=== PATIENT | female | born 1940 | race Caucasian/White ===

== ENCOUNTER 2025-09-07 10:15 | Observation (INO) | payer MEDICARE, SELFPAY ==
[2025-09-07] VITALS (13 sets, daily range): BP systolic 107–186; BP diastolic 45–82; PULSE 61–93; RESP 14–20; TEMP 36.4–36.7; O2SAT 93–98; BMI 25.7; BMI 24.6
--- NOTE | 2025-09-07 10:38 | EKG12_ITS ---
Test Reason : GENERAL Blood Pressure : */* mmHG Vent. Rate : 65 BPM Atrial Rate : 65 BPM P-R Int : 236 ms QRS Dur : 90 ms QT Int : 418 ms P-R-T Axes : -15 -16 24 degrees QTcB Int : 434 ms Atrial-paced rhythm with prolonged AV conduction Moderate voltage criteria for LVH, may be normal variant ( R in aVL , Víctor product ) Abnormal ECG Confirmed by ELOISE JARAMILLO, DESMOND ([id number]), script editor ANGELA KITCHEN ([id number]) on 09/10/2025 1:18:54 PM Referred By: JET Confirmed By: DESMOND NAVAS MD
--- NOTE | 2025-09-07 10:38 | CT_ITS ---
PROCEDURE: STROKE BRAIN/HEAD WITHOUT CONT 09/07/2025 REASON FOR EXAM: NEURO DEFICIT, ACUTE, STROKE SUSPECTED TECHNIQUE: Procedure Code: CTBR.ST Modality: CT Procedure: STROKE BRAIN/HEAD WITHOUT CONT Coronal and Sagittal reconstruction series were provided. One or more dose reduction techniques were used (e.g., Automated exposure control, adjustment of the mA and/or kV according to patient size, use of iterative reconstruction technique. RADIATION DOSE SUMMARY: CTDlvol: 44.9 mGy DLP: 829.85 mGycm COMPARISON: None. FINDINGS: Brain: No acute territorial infarction. No acute intracranial hemorrhage. No mass-effect or midline shift. Diffuse white matter hypodensities which are nonspecific but likely due to chronic small-vessel ischemia. Parenchymal volume loss consistent with brain atrophy. No ventriculomegaly. The orbits are unremarkable. The craniocervical junction is unremarkable. CSF Spaces: Advanced generalized cerebral atrophy Sinuses/Mastoids: Clear. Bones: No acute bony abnormalities. CT/STROKE Brain/Head without Cont IMPRESSION: No acute intracranial abnormalities. Stroke Alert: No acute intracranial abnormalities. The critical findings in the findings and impression above were relayed directl y by me by telephone to Manoj Yoo on 09/07/2025 at 10:59 am with readback verification. Reading Location: [facility]
--- NOTE | 2025-09-07 10:40 | EX.ED.DYSGE1 ---
HPI History of Present Illness Chief Complaint: Dizziness Narrative Narrative: Patient is a 85-year-old female with past medical history of hypertension, pacemaker who presented to the emergency department with chief complaint of dizziness. Patient states that this morning when she woke up she states that she felt dizzy states that when she is going to the bathroom she felt dizzy as well as felt very weak and also was sweating. When inquired about dizziness she cannot exactly pinpoint this she states that she felt very off balance but did not describing things spinning. Per family ember at bedside they tried to get up out of a chair this morning and notes that she fell backwards into her chair as she is very off balance and notes that she had to have significant help walking to the car as she was appearing to fall to the right as she is being supported on the left side. Patient did note that about a week ago she had a fall where she struck her head on concrete outside she denies any blood thinning medications. She states that she thought this was from a concussion however notes that she had been doing well until this morning. [facility] Medical History (Updated 09/07/25 @ 12:[address] Manoj Yoo DO) Pacemaker A-fib HTN (hypertension) Allergy/AdvReac Type Severity Reaction Status Date / Time No Known Allergies Allergy Verified 09/07/25 10:16 Social History Smoking Status: Unknown if ever smoked ROS ROS ED ROS Narrative Constitutional: Complains of dizziness as noted above denies headache Eyes: Denies double vision Cardiovascular: Denies chest pain Respiratory: Denies shortness of breath Abdomen: Complains of nausea and vomiting denies abdominal pain diarrhea : Denies urinary symptoms Neurological: Denies any numbness, weakness, tingling Musculoskeletal: Denies back pain Skin: Denies any rashes or lesions EXAM Physical Exam Narrative Exam Narrative: General: Patient is lying in bed resting comfortably did not appear to be in acute distress Head: Atraumatic, normocephalic Eyes: PERRL bilaterally, EOMI bilaterally, no conjunctival injection noted, no vertical or horizontal nystagmus noted on exam Neck: Soft, supple, trachea midline Cardiovascular: Regular rate and rhythm Respiratory: Clear to auscultation bilaterally Abdomen: Soft, nondistended, no tenderness to palpation Extremities: +5/5 strength noted in the bilateral upper and lower extremities, radial pulses +2/4 in the bilateral upper extremities Neurological: Patient following commands that she was at [facility] year is 2024 NIH of 0 GCS 15 patient completed finger-nose testing bilaterally for any difficulty Skin: Warm, dry, patient has ecchymosis over the right forehead Const Vital Signs: 09/07/25 10:15 09/07/25 10:36 09/07/25 11:00 Temperature 98 F Temperature Source Temporal Pulse Rate 61 66 Respiratory Rate 14 19 H Respiratory Effort Normal Blood Pressure 186/81 H 107/73 Blood Pressure Mean 116 84 Pulse Ox 98 96 Oxygen Delivery Method Room Air Room Air 09/07/25 11:30 Temperature Temperature Source Pulse Rate 63 Respiratory Rate 14 Respiratory Effort Blood Pressure 107/73 Blood Pressure Mean 84 Pulse Ox 97 Oxygen Delivery Method MDM MDM MDM Narrative Medical decision making narrative: Patient is a 85-year-old female who presented to the emergency department chief complaint of dizziness, ataxia nausea. On the differential diagnosis includes but limited to intracranial hemorrhage, ischemic stroke, posterior circulation stroke, electrolyte abnormalities, hypoglycemia. Once the workup is obtained and reviewed she will be reevaluated. Patient will given IV fluids as well as Zofran. Patient states that she woke up at 5:30 AM felt her normal self may have been a little bit nauseous and then 7 AM is when her symptoms started. Patient CBC reviewed and showed a white blood count 11.3, hemoglobin 13.3, plate count was noted to 77. Patient INR normal at 1, PT of 14. Patient sodium normal 142, Tessman 4.1, creatinine 0.81. Patient troponin was noted be 22 glucose noted to be 112. Patient chest x-ray reviewed by me some by radiology showed no acute cardiopulmonary processes. Patient CT brain without contrast showed no acute intracranial abnormalities. Patient CTA head and neck reviewed and showed no significant stenosis in the head or neck. Patient's EKG reviewed showed atrial paced rhythm with rate of 65 bpm AR interval at 236. I called the patient's device rep for her pacemaker as she is concerned that this might not be MRI compatible and after discussion with them they state that indeed this is MRI compatible. Teleneurology Dr. Murrieta is recommending admission for further workup. Patient given 325 mg aspirin. Patient case will be discussed with hospitalist. Discussed case with hospitalist Dr.Tereletsky who accept patient for admission. Patient notified is agreeable to plan all question concerns answered. Lab Data Labs: Laboratory Results - last 24 hr 09/07/25 09/07/25 10:30 10:52 WBC 11.3 H RBC 4.12 L Hgb 13.3 Hct 40.9 MCV 99.3 H MCH 32.3 H MCHC 32.5 RDW Std Deviation 47.0 H RDW Coeff of Neymar 12.8 Plt Count 277 MPV 11.0 Immature Gran % (Auto) 0.400 Neut % (Auto) 83.9 H Lymph % (Auto) 9.6 L [place] % (Auto) 5.1 Eos % (Auto) 0.6 Baso % (Auto) 0.4 Absolute Neuts (auto) 9.5 H Absolute Lymphs (auto) 1.09 Nucleated RBC % 0 PT 14.0 INR 1.1 APTT 26.4 Sodium 142 Potassium 4.1 Chloride 105 Carbon Dioxide 28.1 Anion Gap 8 BUN 15 Creatinine 0.81 Estim Creat Clear Calc 48.11 L Est GFR (MDRD) Non-Af 72 BUN/Creatinine Ratio 18.9 Glucose 112 H Calcium 9.8 Troponin T High Sens 22 H POC Glucose 108 H Radiography Diagnostic Testing: Clinical Impression(s) from Imaging Studies Brain CT 09/07/25 10:38 IMPRESSION: No acute intracranial abnormalities. Stroke Alert: No acute intracranial abnormalities. The critical findings in the findings and impression above were relayed directly by me by telephone to Manoj Yoo on 09/07/2025 at 10:59 am with readback verification. Reading Location: [id number] Head/Neck CTA 09/07/25 10:45 IMPRESSION: No hemodynamically significant stenosis in the head and neck. Reading Location: [id number] Chest X-Ray 09/07/25 11:00 IMPRESSION: As above. Reading Location: [id number] Discharge Plan Dx/Rx/DC Orders Clinical Impression: Dizziness, History of pacemaker, Hypertension, Nausea & vomiting Disposition Disposition: [facility]
--- NOTE | 2025-09-07 10:45 | CT_ITS ---
PROCEDURE: STROKE CTA HEAD AND NECK W/CON 09/07/2025 REASON FOR EXAM: NEURO DEFICIT, ACUTE, STROKE SUSPECTED TECHNIQUE: Procedure Code: CTCTA.ST.HN Modality: CT Procedure: STROKE CTA HEAD AND NECK W/CON Multiplanar Sagittal and Coronal images were obtained. CONTRAST: Isovue 370 VOLUME: 100 mL One or more dose reduction techniques were used (e.g., Automated exposure control, adjustment of the mA and/or kV according to patient size, use of iterative reconstruction technique). RADIATION DOSE SUMMARY: CTDlvol: 15.19 mGy DLP: 563.19 mGycm COMPARISON: None. FINDINGS: Aortic Arch: Normal size and branching pattern. No significant atherosclerotic plaque. Brachiocephalic and Subclavians: Unremarkable RIGHT Carotid: Right CCA: Unremarkable. Right ICA: Unremarkable. Right ECA: Unremarkable. LEFT Carotid: Left CCA: Unremarkable. Left ICA: Unremarkable. Left ECA: Unremarkable. Vertebrals: Codominant. Arise from the subclavians. Both vertebrals form the basilar. RIGHT Vertebral: Unremarkable. LEFT Vertebral: Unremarkable. Anatomy: [place] anatomy is normal. Aneurysm or avm: No intracranial aneurysms or large vascular malformations are identified. Anterior cerebral arteries: Unremarkable: Middle cerebral arteries: Unremarkable. Basilar artery: Unremarkable. Posterior cerebral arteries: Unremarkable. Other major branches of the posterior circulation: Unremarkable. Major venous structures: Unremarkable. Other findings: Neck: No lymphadenopathy. Lungs: Lung apices are clear. Bones: Bones are unremarkable. CT/STROKE CTA Head AND Neck W/Con IMPRESSION: No hemodynamically significant stenosis in the head and neck. Reading Location: [facility]
[2025-09-07 10:53] LABS: Hematocrit 40.9 % (37-47); Hemoglobin 13.3 g/dL (12.0-15.0); Immature Granulocytes Count 0.040 X10^3/uL (0.0-0.0); Mean Corp Hgb Conc 32.5 g/dL (32-36); Mean Corpuscular Volume 99.3 fL (81-99); Mean Platelet Vol. 11.0 fl (6.2-12.0); NRBC Flagged by Analyzer 0 % (0-5); Platelet Count 277 K/mm3 (150-450); RBC Distribution Width CV 12.8 % (11.6-14.6); RBC Distribution Width SD 47.0 fl (35.1-43.9); Red Blood Count 4.12 M/mm3 (4.2-5.4); White Blood Count 11.3 K/mm3 (4.4-11.0)
--- NOTE | 2025-09-07 11:00 | RAD_ITS ---
PROCEDURE: CHEST 1 VIEW 09/07/2025 REASON FOR EXAM: NEURO DEFICIT, ACUTE, STROKE SUSPECTED TECHNIQUE: Frontal view of the chest. FINDINGS: No airspace consolidation or pleural effusion. Cardiomegaly with a left-sided cardiac pacemaker. No acute fracture. RAD/Chest 1 View IMPRESSION: As above. Reading Location: [id number]
[2025-09-07 11:04] LABS: Prothrombin Time (Protime)PT. 14.0 SECONDS (11.7-14.9)
[2025-09-07 11:05] LABS: Partial Thromboplast Time 26.4 Seconds (24.1-36.2)
[2025-09-07] MEDS: 0.9% Normal Saline (1000mL) 1,000 ML 999 ML IV (11:08)
[2025-09-07 11:13] LABS: Anion Gap 8 (5-15); BUN 15 mg/dL (4-19); BUN/Creat Ratio 18.9 RATIO (10-20); Calcium,Total 9.8 mg/dL (7.6-11.0); Carbon Dioxide 28.1 mmol/L (21.0-32.0); Chloride 105 mmol/L (98-108); Estimated Creatinine Clearance 48.11 ml/min (50-250); Glucose 112 mg/dL (70-99); Potassium 4.1 mmol/L (3.3-5.1); Troponin T High Sensitivity 22 ng/L (<=14)
--- NOTE | 2025-09-07 13:06 | MRI_ITS ---
PROCEDURE: BRAIN WITHOUT CONTRAST 09/07/2025 REASON FOR EXAM: ATAXIA TECHNIQUE: Procedure Code: MRIBR Modality: MR Procedure: BRAIN WITHOUT CONTRAST Multiplanar and multisequence images were obtained. COMPARISON: CT head dated earlier on the same day. FINDINGS: Extensive confluence and focal FLAIR hyperintensities are noted throughout the bilateral cerebral white matter, nonspecific but likely representing chronic microvascular ischemic changes. Moderate generalized atrophy with commensurate ventriculomegaly. Otherwise the brain parenchyma appears unremarkable. The wells-white matter differentiation is appropriate. No midline shift. The midline structures are intact, specifically the corpus callosum, septum pellucidum, pituitary gland, and cerebellar vermis. The cervicomedullary junction appears unremarkable. The paranasal sinuses and mastoid air cells are clear. Evidence of right cataract surgery. Diffusion-weighted images demonstrate no restricted diffusion. MRI/Brain without Contrast IMPRESSION: Extensive nonspecific FLAIR hyperintensities throughout the bilateral cerebral white matter, likely representing chronic microvascular ischemic changes. Moderate generalized atrophy. Reading Location: [id number]
--- NOTE | 2025-09-07 13:06 | ECHOD_ITS ---
Reason For Study Reason For Study: TIA/CVA Procedure This was a 2D Doppler, Color Flow transthoracic echocardiogram. Exam performed portable in patient room. Left Ventricle Moderate concentric left ventricular hypertrophy. Left ventricular systolic function is normal. No regional wall motion abnormalities noted. Right Ventricle Normal RV size. Normal systolic function. Atria The left atrium is moderately enlarged. Normal right atrium. Mitral Valve Bileaflet diffuse mitral valve thickening. Mild (1+) mitral valve insufficiency. Tricuspid Valve Normal tricuspid valve. Moderate (2+) tricuspid valve insufficiency. Right ventricular systolic pressure estimated to be 42 mmHg. Aortic Valve Mild diffuse aortic valve thickening. Moderate (2+) aortic valve insufficiency. Pulmonic Valve The pulmonic valve is not well visualized. Great Vessels Normal sized aortic root. Pericardium/Pleural No pericardial effusion. MMode/2D Measurements & Calculations LVIDd: 4.9 cm IVSd: 1.2 cm Ao root diam: 3.5 cm LVIDs: 2.9 cm LVPWd: 1.3 cm RVDd: 3.1 cm FS: 40.3 % asc Aorta Diam: 3.8 cm LAV(MOD-bp): 71.7 ml LVAd ap4: 23.1 cm2 LAV(MOD-bp) Indexed: 41.5 ml/m2 LVLd ap4: 6.2 cm LAV(MOD-sp2): 70.5 ml EDV(MOD-sp4): 70.2 ml LAV(MOD-sp4): 74.8 ml EDV(sp4-el): 73.3 ml LVAs ap4: 12.3 cm2 LVLs ap4: 5.2 cm ESV(MOD-sp4): 26.8 ml ESV(sp4-el): 24.5 ml EF(MOD-sp4): 61.8 % EF(sp4-el): 66.6 % LVAd ap2: 23.2 cm2 SV(MOD-sp4): 43.4 ml SV(MOD-sp2): 45.2 ml LVLd ap2: 6.6 cm SI(MOD-sp4): 25.1 ml/m2 SI(MOD-sp2): 26.1 ml/m2 EDV(MOD-sp2): 68.0 ml EDV(sp2-el): 69.3 ml LVAs ap2: 11.4 cm2 LVLs ap2: 5.3 cm ESV(MOD-sp2): 22.7 ml ESV(sp2-el): 20.9 ml EF(MOD-sp2): 66.5 % SV(sp4-el): 48.8 ml LA dimension(2D): 4.3 cm LA A4 area: 22.9 cm2 RA A4 area: 16.0 cm2 TAPSE: 2.3 cm Time Measurements MV dec time: 0.24 sec Doppler Measurements & Calculations MV E max pavan: 79.0 cm/sec Lat Peak E' Pavan: 8.6 cm/sec Med Peak E' Pavan: 4.7 cm/sec MV A max pavan: 79.0 cm/sec E/E' lat: 9.1 E/E' med: 16.8 MV E/A: 1.0 MV V2 max: 78.5 cm/sec MV P1/2t max pavan: 83.3 cm/sec Ao V2 max: 135.7 cm/sec MV max P.5 mmHg MV P1/2t: 71.8 msec Ao max P.4 mmHg MV V2 mean: 44.0 cm/sec Ao V2 mean: 77.6 cm/sec MV mean P.92 mmHg MV dec slope: 339.4 cm/sec2 Ao mean P.8 mmHg MV V2 VTI: 24.8 cm MVA(P1/2t): 3.1 cm2 Ao V2 VTI: 25.3 cm AV (velocity ratio): 0.82 AI max pavan: 315.2 cm/sec LV V1 max: 108.0 cm/sec PA V2 max: 71.3 cm/sec AI max P.8 mmHg LV V1 max P.7 mmHg AI dec slope: 156.2 cm/sec2 LV V1 mean P.8 mmHg AI P1/2t: 590.8 msec LV V1 mean: 62.6 cm/sec LV V1 VTI: 20.7 cm TR max pavan: 327.5 cm/sec TR max P.9 mmHg ECHO/Echo Complete Interpretation Summary Moderate (2+) tricuspid valve insufficiency. Right ventricular systolic pressure estimated to be 42 mmHg. Moderate concentric left ventricular hypertrophy. Left ventricular systolic function is normal. The left atrium is moderately enlarged. Mild diffuse aortic valve thickening. Moderate (2+) aortic valve insufficiency. No pericardial effusion. Ordering Physician: Parish Triplett Referring Physician: Melba Baumann Performed By: Negrita Tompkins, EDGARDO, RVT
[2025-09-07 13:29] LABS: Troponin T High Sens 2 HR 22 ng/L (<=14)
[2025-09-07 15:13] LABS: Troponin T High Sens 4 HR 24 ng/L (<=14)
[2025-09-07] MEDS: Heparin Injection (Vial) 5,000 UNIT/ML VIAL 5000 UNIT SC (23:32)
[2025-09-08 02:00] VITALS: BP 118/52; PULSE 60; RESP 16; TEMP 36.7; O2SAT 94
[2025-09-08 02:52] VITALS: O2SAT 94
[2025-09-08 05:18] LABS: Cholesterol 154 mg/dL (<=200); Low Density Lipoprotein Calc. 89 mg/dL; Triglycerides 91 mg/dL; Very Low Density Lipoprotein 18 mg/dL (5-40); cholesterol:hdl ratio screen 3.20
[2025-09-08 05:52] VITALS: BP 102/45; PULSE 60; RESP 16; TEMP 36.9; O2SAT 94
--- NOTE | 2025-09-08 08:00 | PCM.HP.STD ---
HPI - General General Date of Admission: 09/07/25 Date of Service: 09/07/25 Chief Complaint: Ataxia, dizziness HPI Narrative Date of this entry is 09/07/2025: SALOME PICHARDO, is a 85 F who presents to the emergency room at [facility] with complaints of difficulty walking due to unsteadiness with her balance and occasional dizziness. Patient denies any focal motor weakness, she denies any speech problems or visual problems. Stroke team was called, CT of the brain and CTA of the head and neck were obtained and were unremarkable. Patient's NIH score was 0, patient was not felt to be candidate for TNK. Labs were performed, patient's white blood cell count was elevated at 11.3, chemistry profile was unremarkable, patient's troponin was slightly elevated at 22, repeat troponin 2 hours was also 22. It was recommended by teleneurology that the patient be admitted for further workup, patient will be placed into observation status on PCU and undergo an MRI of the brain without contrast, echocardiogram will be obtained and she will be seen by PT OT and speech therapy. [facility] Medical History (Updated 09/07/25 @ 12:[address] Manoj Yoo DO) Pacemaker A-fib HTN (hypertension) Home Medications ?Medication ?Instructions ?Recorded ?Last Taken ?Type aspirin 81 mg capsule 162 mg PO BID 09/07/25 09/07/25 08:00 History carvedilol 6.25 mg tablet 6.25 mg PO BID 09/07/25 09/07/25 08:00 History atorvastatin 40 mg tablet (Lipitor) 40 mg PO DAILY #30 tabs 09/08/25 Unknown Rx ondansetron HCl 4 mg tablet 4 mg PO Q6H PRN nausea and 09/08/25 Unknown Rx vomiting #20 tabs Allergy/AdvReac Type Severity Reaction Status Date / Time No Known Allergies Allergy Verified 09/07/25 10:16 Social History Smoking Status: Current every day smoker tobacco type: cigarettes ROS Constitutional Constitutional: Denies anorexia, change in weight, fever(s), night sweats or weakness Eyes Eyes: Denies blurry vision, change in vision, discharge from eye(s) or eye pain Cardiovascular Cardiovascular: Denies chest pain, claudication, dyspnea on exertion, edema or palpitations Respiratory/Chest Respiratory/Chest: Denies cough, hemoptysis, shortness of breath at rest or shortness of breath with exertion Gastrointestinal Gastrointestinal: Denies abdominal pain, constipation, diarrhea, hematemesis, hematochezia, melena, nausea or vomiting Genitourinary Genitourinary: Denies dysuria, hematuria, urinary frequency, urinary hesitancy, urinary incontinence or urinary urgency Musculoskeletal Musculoskeletal: Denies back pain, joint pain, joint stiffness, joint swelling, myalgias or neck pain Neurologic Neurologic: Reports dizziness; Denies abnormal gait, abnormal speech, focal weakness, headache(s), loss of vision, numbness, other visual disturbances, paresthesias, syncope or tingling Psychiatric Psychiatric: Denies anxiety, cognitive impairment, depression, irritability, mood swings or suicidal ideation Endocrine Endocrinology: Denies change in body appearance, cold intolerance, excessive sweating, heat intolerance, polydipsia or polyuria Hematologic/Lymphatic Hematologic/Lymphatic: Denies none, anemia, easy bleeding, easy bruising or lymphadenopathy Allergic/Immunologic Allergic/Immunologic: Denies rhinitis, urticaria, eczemia or asthma Vital Signs Vital Signs Vital Signs: 09/07/25 10:15 09/07/25 10:36 09/07/25 11:00 Temperature 98 F Temperature Source Temporal Pulse Rate 61 66 Respiratory Rate 14 19 H Respiratory Effort Normal Respiratory Depth Respiratory Pattern Blood Pressure 186/81 H 107/73 Blood Pressure Mean 116 84 Blood Pressure Source Blood Pressure Position Blood Pressure Location Pulse Ox 98 96 Oxygen Delivery Method Room Air Room Air 09/07/25 11:30 09/07/25 12:00 09/07/25 12:46 Temperature Temperature Source Pulse Rate 63 71 65 Respiratory Rate 14 16 14 Respiratory Effort Respiratory Depth Respiratory Pattern Blood Pressure 107/73 165/66 H 161/69 H Blood Pressure Mean 84 99 99 Blood Pressure Source Blood Pressure Position Blood Pressure Location Pulse Ox 97 97 97 Oxygen Delivery Method Nasal Cannula 09/07/25 12:47 09/07/25 13:00 09/07/25 14:00 Temperature 97.8 F 97.6 F L Temperature Source Oral Pulse Rate 63 65 76 Respiratory Rate 20 H 20 H 16 Respiratory Effort Respiratory Depth Respiratory Pattern Blood Pressure 173/82 H 163/66 H 138/74 H Blood Pressure Mean 112 98 95 Blood Pressure Source Monitor Blood Pressure Position Semi-Fowlers Blood Pressure Location Left Arm Pulse Ox 98 97 93 Oxygen Delivery Method Room Air 09/07/25 15:20 09/07/25 15:30 09/07/25 15:59 Temperature Temperature Source Pulse Rate 85 84 Respiratory Rate 16 16 Respiratory Effort Respiratory Depth Respiratory Pattern Blood Pressure 171/74 H 157/75 H Blood Pressure Mean 106 102 Blood Pressure Source Monitor Monitor Blood Pressure Position Supine Supine Blood Pressure Location Left Arm Left Arm Pulse Ox 95 93 97 Oxygen Delivery Method Room Air Room Air Room Air 09/07/25 18:00 09/07/25 22:00 09/07/25 22:00 Temperature 97.7 F L 98.1 F Temperature Source Oral Oral Pulse Rate 93 63 Respiratory Rate 16 16 Respiratory Effort Normal Respiratory Depth Normal Respiratory Pattern Normal Blood Pressure 142/75 H 114/45 L Blood Pressure Mean 97 68 Blood Pressure Source Monitor Monitor Blood Pressure Position Semi-Fowlers Semi-Fowlers Blood Pressure Location Right Arm Right Arm Pulse Ox 97 94 94 Oxygen Delivery Method Room Air Room Air Room Air 09/08/25 02:00 09/08/25 02:52 09/08/25 05:52 Temperature 98.1 F 98.5 F Temperature Source Oral Oral Pulse Rate 60 60 Respiratory Rate 16 16 Respiratory Effort Normal Respiratory Depth Normal Respiratory Pattern Normal Blood Pressure 118/52 L 102/45 L Blood Pressure Mean 74 64 Blood Pressure Source Monitor Monitor Blood Pressure Position Semi-Fowlers Semi-Fowlers Blood Pressure Location Left Arm Left Arm Pulse Ox 94 94 94 Oxygen Delivery Method Room Air Room Air Room Air Weight Weight: 65.1 kg Body Mass Index (BMI) 24.6 Physical Exam Const alert, oriented x3, no apparent distress, average body habitus and healthy appearing General Appearance: cooperative, well kempt and well developed Orientation / Consciousness: awake, oriented to person, oriented to place and oriented to time HEENT normocephalic, head/scalp atraumatic, hearing grossly normal bilaterally and moist oral mucous membranes Eyes PERRL, EOMs intact bilaterally and conjunctivae normal Neck supple, no JVD, thyroid normal and no carotid bruits General: trachea midline Resp normal respiratory effort, no retractions, no use of accessory muscles and clear to auscultation bilaterally Auscultation: Negative for rales, rhonchi or wheezes Cardio regular rate, regular rhythm, S1 normal heart sound, S2 normal heart sound, no murmurs, no rub and no gallops GI normal to inspection, nondistended, normoactive bowel sounds, soft to palpation, non-tender and non-distended Extremity no clubbing, cyanosis or edema Skin no rashes or lesions noted General Skin Exam: no breakdown Neuro oriented x3, CN's II-XII intact bilaterally, no focal motor deficits and no sensory deficits noted Sensorium / Orientation: awake and alert Speech: speech normal Psych affect normal Results Lab / Micro Data 09/07/25 10:30 09/07/25 10:30 Labs: Laboratory Results - last 24 hr 09/07/25 10:30: WBC 11.3 H, RBC 4.12 L, Hgb 13.3, Hct 40.9, MCV 99.3 H, MCH 32.3 H, MCHC 32.5, RDW Std Deviation 47.0 H, RDW Coeff of Neymar 12.8, Plt Count 277, MPV 11.0, Immature Gran % (Auto) 0.400, Neut % (Auto) 83.9 H, Lymph % (Auto) 9.6 L, [place] % (Auto) 5.1, Eos % (Auto) 0.6, Baso % (Auto) 0.4, Absolute Neuts (auto) 9.5 H, Absolute Lymphs (auto) 1.09, Nucleated RBC % 0, PT 14.0, INR 1.1, APTT 26.4, Sodium 142, Potassium 4.1, Chloride 105, Carbon Dioxide 28.1, Anion Gap 8, BUN 15, Creatinine 0.81, Estim Creat Clear Calc 48.11 L, Est GFR (MDRD) Non-Af 72, BUN/Creatinine Ratio 18.9, Glucose 112 H, Calcium 9.8, Troponin T High Sens 22 H 09/07/25 10:52: POC Glucose 108 H 09/07/25 12:55: Troponin T Hi Sens 2 Hr 22 H 09/07/25 14:33: Troponin T Hi Sens 4Hr 24 H 09/08/25 04:42: Triglycerides 91, Cholesterol 154, LDL Cholesterol, Calc 89, VLDL Cholesterol 18, HDL Cholesterol 48, Cholesterol/HDL Ratio 3.20 Imaging Radiology Impression Brain CT 09/07/25 10:38 IMPRESSION: No acute intracranial abnormalities. Stroke Alert: No acute intracranial abnormalities. The critical findings in the findings and impression above were relayed directly by me by telephone to Manoj Yoo on 09/07/2025 at 10:59 am with readback verification. Reading Location: [id number] Head/Neck CTA 09/07/25 10:45 IMPRESSION: No hemodynamically significant stenosis in the head and neck. Reading Location: [id number] Chest X-Ray 09/07/25 11:00 IMPRESSION: As above. Reading Location: [id number] Brain MRI 09/07/25 13:06 IMPRESSION: Extensive nonspecific FLAIR hyperintensities throughout the bilateral cerebral white matter, likely representing chronic microvascular ischemic changes. Moderate generalized atrophy. Reading Location: [facility] Assessment & Plan Assessment/Plan (1) Dizziness: PLAN: Plan 1. Ataxia and dizziness-etiology unclear, patient will be placed in observation status on PCU, she will undergo an MRI of her brain without contrast, echocardiogram will be obtained and she will be seen by PT OT and speech therapy. She will also be seen by teleneurology #2 essential hypertension-patient is on carvedilol #3 pacemaker with atrial paced ventricular sensed rhythm Total clinical time spent by myself addressing patient's medical issues, reviewing all of her data, and collaborating with patient's care team: 55-minutes Charges/Coding Visit Charges Inpatient E&M: 21547 Subs Hosp L2
[2025-09-08] MEDS: Heparin Injection (Vial) 5,000 UNIT/ML VIAL 5000 UNIT SC (08:32)
[2025-09-08 09:00] VITALS: BP 138/62; PULSE 84; RESP 16; TEMP 36.6; O2SAT 94
[2025-09-08 09:01] VITALS: BMI 24.6
[2025-09-08 11:51] VITALS: BMI 24.6
--- NOTE | 2025-09-08 12:52 | CASEMGMT ---
KE CM in to discuss OSBORN form with patient. RN CM explained OSBORN form, patient voiced understanding. Pt signed form and filed in chart. Pt provided with a copy of signed OSBORN form. Patient had no further questions or concerns at this time.
--- NOTE | 2025-09-08 13:26 | NEURO.CONS ---
Assessment and Plan: Neuro Assessment/Plan SALOME PICHARDO is a 85 F with a past medical history of afib, being evaluated by Teleneurology for dizziness. Concern based on history for TIA vs concussion. Given history of afib, would recommend [id number], 9.8% yearly stroke risk however patient is refusing blood thinners given prior experience. ?The following tests for stroke work-up have been/should be obtained:? ? Neuroimaging: MRI Brain without stroke, does not rule out TIA ? Vascular imaging: CTA without dissection, athero ? Cardiac testing: TTE with LA enlargement ? Cardiac monitoring: pacemaker ? Labs: HgbA1c pending, LDL89 ?Permissive hypertension to goal SBP < 130/80 mm Hg ?Anti-platelet medication: ASA 325mg (recommended Eliquis but pt has refused help) ?Statin therapy: atorvastatin 20mg ?Occupational/Physical therapy consults ?NPO until swallow evaluation.? IVF until able to take po ?DVT prophylaxis with SCDs and heparin SQ. ?Vascular risk factor modification.? 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 BP management should aim to achieve tripper control in a reasonable amount of time, taking into consideration the individual patient's requirements and characteristics. Weight Management: Goal for BMI is 18.5-24.9 kg/m2. Alcohol: No more than 2 drinks/day for men or 1 drink/day for non- women. Promote lifestyle modification: weight control, physical activity, moderation of alcohol intake, moderate sodium intake. I personally attended this patient and spent a total time of 45minutes evaluating this patient including clinical assessment, review of chart, medical history imaging, and determining appropriate treatment and workup. HPI Consult Data Date of Consult: 09/08/25 HPI Narrative HPI Narrative: SALOME PICHARDO, is a 85 F who presents to the emergency room at [facility] with complaints of difficulty walking due to unsteadiness with her balance and occasional dizziness. Patient denies any focal motor weakness, she denies any speech problems or visual problems. Stroke team was called, CT of the brain and CTA of the head and neck were obtained and were unremarkable. Patient's NIH score was 0, patient was not felt to be candidate for TNK. Labs were performed, patient's white blood cell count was elevated at 11.3, chemistry profile was unremarkable, patient's troponin was slightly elevated at 22, repeat troponin 2 hours was also 22. It was recommended by teleneurology that the patient be admitted for further workup, patient will be placed into observation status on PCU and undergo an MRI of the brain without contrast, echocardiogram will be obtained and she will be seen by PT OT and speech therapy. Neurology History Ptabiola was cold and dlammy and vomitting for an hour and the room started spinning. Was initially nauseated then the room spun. HAd not moved around significantly prior to the symptoms starting. Was vomitting quite a bit. This lasted for several hours and got better when in the ED and she got nausea meds and her BP came down (initial BP was 180s). Currently feels back to normal. Carlyle back to normal after several hrs but back to normal after she was largely in the hospital. Nothing like this has happened before, no prior stroke. No diplopia. On ASA at home. Pt did fall a week ago and hit her head. After hitting her head she felt headachey but no cognitive issues, no dizziness, but was feeling nauseated quite often. Exam -? General: Laying comfortably in bed; in no acute distress. -? HENT: Normal oropharynx and mucosa. Normal external appearance of ears and nose. Exophthalmos. -? Neck: Supple, no pain or tenderness -? CV:? No peripheral edema. -? Pulmonary:? Normal respiratory effort. -? Ext: No cyanosis, edema, or deformity -? Skin: No rash. Normal palpation of skin.? -? Musculoskeletal: full range of motion; no joint tenderness. Normal digits and nails by inspection. No clubbing. -? NEURO: -? Mental Status: The patient was alert and oriented to time, place, and person. Normal recent/remote memory, concentration, and general fund of knowledge. -? Language: speech is clear.? Naming, repetition, fluency, and comprehension intact. -? Cranial Nerves: PERRL 3 mm/brisk. EOMI, visual shelton full, no facial asymmetry, facial sensation intact, hearing intact, tongue midline, no evidence of atrophy or fibrillations. -? Motor: normal bulk, tone, and strength throughout. No pronator drift or satelliting. Upper and lower extremities equal bilaterally. -? Detailed strength exam as performed by the nurse/TRINY and witnessed by the physician: R L SA 5 5 EE EF WE WF Antenna Engineer 5 5 HF KE KF DF PF -? Tone: is normal and bulk is normal -? Sensation- Intact to light touch bilaterally -? Coordination: No dysmetria on [id number], finger follow finger or [id number]. -? Gait-deferred [facility] Medical History (Updated 09/07/25 @ 12:[address] Manoj Yoo, ) Pacemaker A-fib HTN (hypertension) Home Medications ?Medication ?Instructions ?Recorded ?Last Taken ?Type aspirin 81 mg capsule 162 mg PO BID 09/07/25 09/07/25 08:00 History carvedilol 6.25 mg tablet 6.25 mg PO BID 09/07/25 09/07/25 08:00 History Allergy/AdvReac Type Severity Reaction Status Date / Time No Known Allergies Allergy Verified 09/07/25 10:16 Social History Smoking Status: Current every day smoker tobacco type: cigarettes Vital Signs Vital Signs Vital Signs: 09/07/25 14:00 09/07/25 15:20 09/07/25 15:30 Temperature 97.6 F L Temperature Source Oral Pulse Rate 76 85 84 Respiratory Rate 16 16 16 Respiratory Effort Respiratory Depth Respiratory Pattern Blood Pressure 138/74 H 171/74 H 157/75 H Blood Pressure Mean 95 106 102 Blood Pressure Source Monitor Monitor Monitor Blood Pressure Position Semi-Fowlers Supine Supine Blood Pressure Location Left Arm Left Arm Left Arm Pulse Ox 93 95 93 Oxygen Delivery Method Room Air Room Air Room Air 09/07/25 15:59 09/07/25 18:00 09/07/25 22:00 Temperature 97.7 F L Temperature Source Oral Pulse Rate 93 Respiratory Rate 16 Respiratory Effort Normal Respiratory Depth Normal Respiratory Pattern Normal Blood Pressure 142/75 H Blood Pressure Mean 97 Blood Pressure Source Monitor Blood Pressure Position Semi-Fowlers Blood Pressure Location Right Arm Pulse Ox 97 97 94 Oxygen Delivery Method Room Air Room Air Room Air 09/07/25 22:00 09/08/25 02:00 09/08/25 02:52 Temperature 98.1 F 98.1 F Temperature Source Oral Oral Pulse Rate 63 60 Respiratory Rate 16 16 Respiratory Effort Normal Respiratory Depth Normal Respiratory Pattern Normal Blood Pressure 114/45 L 118/52 L Blood Pressure Mean 68 74 Blood Pressure Source Monitor Monitor Blood Pressure Position Semi-Fowlers Semi-Fowlers Blood Pressure Location Right Arm Left Arm Pulse Ox 94 94 94 Oxygen Delivery Method Room Air Room Air Room Air 09/08/25 05:52 09/08/25 08:55 09/08/25 09:00 Temperature 98.5 F 97.9 F Temperature Source Oral Temporal Pulse Rate 60 84 Respiratory Rate 16 16 Respiratory Effort Normal Respiratory Depth Normal Respiratory Pattern Normal Blood Pressure 102/45 L 138/62 H Blood Pressure Mean 64 87 Blood Pressure Source Monitor Monitor Blood Pressure Position Semi-Fowlers Semi-Fowlers Blood Pressure Location Left Arm Left Arm Pulse Ox 94 94 Oxygen Delivery Method Room Air Room Air Room Air Weight Weight: 65.1 kg Body Mass Index (BMI) 24.6 EEG Results Procedure Details EEG Procedure Details: SALOME PICHARDO is a 85 year old F with a past medical history of , who presents for evaluation of Electroencephalogram on DATE at TIME Lab / Micro Data 09/07/25 10:30 09/07/25 10:30 Labs: Laboratory Results - last 24 hr 09/07/25 12:55: Troponin T Hi Sens 2 Hr 22 H 09/07/25 14:33: Troponin T Hi Sens 4Hr 24 H 09/08/25 04:42: Triglycerides 91, Cholesterol 154, LDL Cholesterol, Calc 89, VLDL Cholesterol 18, HDL Cholesterol 48, Cholesterol/HDL Ratio 3.20 Imaging Radiology Impression Brain MRI 09/07/25 13:06 IMPRESSION: Extensive nonspecific FLAIR hyperintensities throughout the bilateral cerebral white matter, likely representing chronic microvascular ischemic changes. Moderate generalized atrophy. Reading Location: [id number] Echocardiogram 09/07/25 13:06 Interpretation Summary Moderate (2+) tricuspid valve insufficiency. Right ventricular systolic pressure estimated to be 42 mmHg. Moderate concentric left ventricular hypertrophy. Left ventricular systolic function is normal. The left atrium is moderately enlarged. Mild diffuse aortic valve thickening. Moderate (2+) aortic valve insufficiency. No pericardial effusion. Ordering Physician: Parish Triplett Referring Physician: Melba Baumann Performed By: Negrita Tompkins, EDGARDO, RVT Active Medications Active Medications Active Medications: Current Medications Generic Name Dose Route Start Last Admin Trade Name Freq PRN Reason Stop Dose Admin Acetaminophen 650 mg 09/07/25 13:49 09/08/25 08:30 Acetaminophen 325 Mg Tablet PO 650 mg Q4H PRN PRN Administration Pain 1-10 Or Fever>99.6 Aspirin 325 mg 09/08/25 08:00 09/08/25 08:31 Aspirin 325 Mg Tablet PO 325 mg BREAKFAST TREVOR Administration Atorvastatin Calcium 80 mg 09/07/25 22:00 09/07/25 23:32 Atorvastatin Calcium 80 Mg Tablet PO 80 mg QHS TREVOR Administration Calamine/Phenol 1 applic 09/07/25 22:00 09/08/25 05:58 Menthol/Lanolin/Calamine/Znox 113 Gm Tube TOPICAL 1 applic TID TREVOR Administration Protocol Carvedilol 6.25 mg 09/07/25 17:00 09/08/25 08:31 Carvedilol 6.25 Mg Tablet PO 6.25 mg BIDCM TREVOR Administration Protocol Heparin Sodium (Porcine) 5,000 unit 09/07/25 22:00 09/08/25 08:32 Heparin Injection (Vial) 5,000 Unit/Ml Vial SC 5,000 unit Q12 TREVOR Administration Hydralazine HCl 5 mg 09/07/25 13:49 Hydralazine 20 Mg/Ml Vial IV 09/08/25 13:49 Q30M PRN maintain BP parameters with HR <60 Sodium Chloride 250 mls @ 15 mls/hr 09/07/25 13:50 IV .[id number] PRN Saline Flush Labetalol HCl 10 - 20 mg 09/07/25 13:49 Labetalol 20 Mg/4 Ml Vial IV 09/08/25 13:49 Q10M PRN PRN maintain BP parameters with HR >/=60 Ondansetron HCl 4 mg 09/07/25 13:49 Ondansetron 4 Mg/2 Ml Vial IV Q8H PRN PRN NAUSEA/VOMITING Sodium Chloride 10 - 40 ml 09/07/25 13:50 0.9% Saline Lock 10 Ml Syringe IV UD PRN SALINE FLUSH NIHSS NIHSS Nursing Documentation NIHSS Nursing Documentation: NIHSS: Ischemic Stroke/TIA Start: 09/07/25 13:49 Text: For PCU Patients: NIH and Neuro Check every 4 Status: Complete hours, PRN and with change in RN caregiver. Freq: [id number] Protocol: Activity Type Activity Date Activity User E-sign Co-sign Detail Recorded Client Recorded Date Recorded By Document 09/08/25 09:00 ML [id number] 09/08/25 09:01 ML 09/08/25 09:00 NIH Stroke Scale [NIHSS] A score of 0 is normal or asymptomatic . Total possible score is 42. Inpatient: RN or Physician to activate a stroke alert for onset of new stroke symptoms or with NIHSS increase >/= 3 points. Following change in neurological status, NIHSS will be performed per physician order or more frequently PRN. -1a. Level of Consciousness 0 - Alert; keenly responsive -1b. LOC Questions 0 - Answers BOTH questions correctly -1c. LOC Commands 0 - Performs BOTH tasks correctly -2. Best Gaze 0 - Normal -3. Visual 0 - No visual loss -4. Facial Palsy 0 - Normal symmetrical movements -5a. Left Arm 0 - No drift; arm holds 90 ( or 45) degrees for full 10 seconds -5b. Right Arm 0 - No drift; arm holds 90 ( or 45) degrees for full 10 seconds -6a. Left Leg 0 - No drift; leg holds 30- degree position for full 5 seconds -6b. Right Leg 0 - No drift; leg holds 30- degree position for full 5 seconds -7. Limb Ataxia 0 - Absent -8. Sensory 0 - Normal; no sensory loss -9. Best Language 0 - No aphasia; normal -10. Dysarthria 0 - Normal -11. Extinction and Inattention 0 - No abnormality -Total 0 Query Text:A score of 0 is normal or asymptomatic. Total possible score is 42 . ED: Notify Physician for NIHSS increase by > / = 3 points. Inpatient: RN or Physician to activate a stroke alert for NIHSS increase of > / = 3 points. Coma Scale [Assess] -Eye Opening Spontaneous -Motor Obeys Commands -Verbal Oriented [Total] -Coma Scale Total 15
--- NOTE | 2025-09-08 14:17 | DCINST_ITS ---
Discharge Instructions DC O2, CPAP, BIPAP needs Home O2 Discharge instructions: No Dressing / Incision Discharge Activity: Return to Normal Activity Weight Bearing Status: Full weight bearing Follow Up Care Test Results: Test results from this visit will be discussed in further detail at your follow- up appointment, if applicable. Discharge Plan Admission Admit Date/Time: 09/07/25 12:52 Primary Reason for Your Visit: TIA (transient ischemic attack) Attending Provider: Parish Triplett Primary Care Provider: Indra Ford Consulting Providers: Dax Hardy; Adelina Mercado; Pretty Rivera; Alaina Beckford; Geovanna Connelly; Ken Henning; Indy Linares; Isaac Jorgensen; Massimo Chahal; Evelio Hardwick; Janelle Ferguson; Joi Orozco; Juan David Nails; Fransisca Gong; Roney Altman; Christian Sheppard; Jonnie Dumont; Russel Gilliland; Thomas Murrieta; Karen Corral; Sarwat Neal Instructions Additional Instructions / Restrictions: I strongly recommend since you are taking aspirin daily to take omeprazole 20 mg once a day to protect your stomach-you can obtain this [id number] Discharge Orders/Prescriptions Prescriptions: New atorvastatin [Lipitor] 40 mg tablet 40 mg PO DAILY Qty: 30 0RF ondansetron HCl 4 mg tablet 4 mg PO Q6H PRN (Reason: nausea and vomiting) Qty: 20 0RF Continued aspirin 81 mg capsule 162 mg PO BID carvedilol 6.25 mg tablet 6.25 mg PO BID Referrals / Follow Up: Indra Ford MD [Primary Care Provider, Internal Medicine] - Within 2 Weeks Disposition Disposition (needs filled in before D/C Order can be placed): Home, Self Care
--- NOTE | 2025-09-08 14:30 | DS.PCM_ITS ---
Providers Date of Admission: 09/07/25 Date of Discharge: 09/08/25 Primary Care Physician: Dr. Melba Baumann MD Consultations 09/07/25 13:49 Consult: Tele-Neurology Routine Consulting Provider: [facility] Reason for Consult: Acute Ischemic Stroke/TIA EMERGENT Consult: No MD Notified: Yes Date Notified: 09/07/25 Time Notified: 14:00 Method of Notification: Answering Service Nursing Unit Staff Notify [facility] of Tele-Neurology Consult: Yes Reason For Visit: ATAXIA Diagnosis Discharge Diagnosis (1) Dizziness: Status: Acute Code(s): R42 - Dizziness and giddiness Plan 1. Transient ischemic attack #2 mild pulmonary hypertension #3 essential hypertension #4 hyperlipidemia Medications at Discharge Home Medications aspirin 81 mg capsule 162 mg PO BID 09/07/25 carvedilol 6.25 mg tablet 6.25 mg PO BID 09/07/25 atorvastatin 40 mg tablet (Lipitor) 40 mg PO DAILY #30 tabs 09/08/25 ondansetron HCl 4 mg tablet 4 mg PO Q6H PRN nausea and vomiting #20 tabs 09/08/25 Hospital Course Operations None Procedures 2-D Echocardiogram Summary of Care Provided Minutes Spent on Discharge: 31 Hospital Course: This 85-year-old white female was seen in the emergency room at [facility] with complaints of difficulty walking due to unsteadiness with her balance and also occasional dizziness. Stroke team was called, CT of the brain and CTA of the head and neck were obtained which were unremarkable, patient's NIH score was 0, patient was not felt to be candidate for TNK. Labs revealed a slightly elevated troponin at 22, repeat troponin 2 hours later was also 22. Teleneurology recommended that the patient be admitted for further workup, she was placed into observational status on PCU, seen by PT OT and speech therapy and also seen by teleneurology. Patient underwent an MRI of the brain which did not show an acute infarct. Teleneurology felt that the patient may have had a TIA and recommended that the patient go on Eliquis which patient refused, teleneurology also recommended that the patient take a statin for hyperlipidemia and because of the TIA, patient also refused this. On 09/08/2025, patient was seen and examined: On examination she appeared in good health and spirits, she does not appear to be in any distress. Vital signs as documented. Skin warm and dry and without overt rashes. Neck without JVD, thyroid appears normal, trachea is midline, neck is supple. Lungs clear, normal air movement was noted. Heart exam notable for regular rhythm, normal sounds and absence of murmurs, rubs or gallops. Abdomen unremarkable and without evidence of organomegaly, masses, or abdominal aortic enlargement, bowel sounds are present in all 4 quadrants, no abdominal tenderness was noted. Extremities nonedematous, no cyanosis was noted, no clubbing was noted. Neuro: Cranial nerves II through XII are grossly intact, no focal motor deficits were noted, sensation to light touch and pinprick is intact, motor exam 5/5 throughout. Psych: Patient is alert and oriented x3, she does not appear anxious or depressed, she does not appear agitated. Patient was discharged home in stable condition on 09/08/2025. Weight / BMI Weight Weight: 65.1 kg Body Mass Index (BMI) 24.6 ABG / Lab / Microbiology Data 09/07/25 10:30 09/07/25 10:30 Laboratory: Laboratory Results - last 24 hr 09/07/25 14:33: Troponin T Hi Sens 4Hr 24 H 09/08/25 04:42: Triglycerides 91, Cholesterol 154, LDL Cholesterol, Calc 89, VLDL Cholesterol 18, HDL Cholesterol 48, Cholesterol/HDL Ratio 3.20 Radiography Diagnostic Testing: Radiology Impression Brain MRI 09/07/25 13:06 IMPRESSION: Extensive nonspecific FLAIR hyperintensities throughout the bilateral cerebral white matter, likely representing chronic microvascular ischemic changes. Moderate generalized atrophy. Reading Location: [id number] Echocardiogram 09/07/25 13:06 Interpretation Summary Moderate (2+) tricuspid valve insufficiency. Right ventricular systolic pressure estimated to be 42 mmHg. Moderate concentric left ventricular hypertrophy. Left ventricular systolic function is normal. The left atrium is moderately enlarged. Mild diffuse aortic valve thickening. Moderate (2+) aortic valve insufficiency. No pericardial effusion. Ordering Physician: Parish Triplett Referring Physician: Melba Baumann Performed By: Negrita Tompkins RDCS, RVT D/C Instructions Weight Bearing Status: Full weight bearing DC O2, CPAP, BIPAP Needs Home O2 Discharge instructions: No Meaningful Use Info Meaningful Use Meaningful Use Diagnoses (Choose all that apply): None applicable Discharge Plan Admission Admit Date/Time: 09/07/25 12:52 Primary Reason for Your Visit: TIA (transient ischemic attack) Attending Provider: Parish Triplett Primary Care Provider: Melba Baumann Consulting Providers: Dax Hardy; Adelina Mercado; Pretty Rivera; Alaina Beckford; Geovanna Connelly; Ken Henning; Indy Linares; Isaac Jorgensen; Massimo Chahal; Evelio Hardwick; Janelle Ferguson; Joi Orozco; Juan David Nails; Fransisca Gong; Roney Altman; Christian Sheppard; Jonnie Dumont; Russel Gilliland; Thomas Murrieta; Karen Corral; Sarwat Neal Instructions Additional Instructions / Restrictions: I strongly recommend since you are taking aspirin daily to take omeprazole 20 mg once a day to protect your stomach-you can obtain this [id number] Discharge Orders/Prescriptions Prescriptions: New atorvastatin [Lipitor] 40 mg tablet 40 mg PO DAILY Qty: 30 0RF ondansetron HCl 4 mg tablet 4 mg PO Q6H PRN (Reason: nausea and vomiting) Qty: 20 0RF Continued aspirin 81 mg capsule 162 mg PO BID carvedilol 6.25 mg tablet 6.25 mg PO BID Referrals / Follow Up: Melba Baumann MD [Primary Care Provider, Internal Medicine] - Within 2 Weeks Disposition Disposition (needs filled in before D/C Order can be placed): Home, Self Care Charges/Coding Visit Charges Inpatient E&M: 38522 Disch Hosp >30min
[2025-09-08 14:55] VITALS: BP 127/69; PULSE 87; RESP 16; TEMP 37; O2SAT 97
== END 2025-09-08 15:11 | disposition home or self-care (01) ==
LOC: ED 12:17 → PCU 13:29
PROVIDERS: Admitting Provider Internal Medicine; Emergency Provider Emergency Medicine; PCP Internal Medicine; Visit Provider Internal Medicine
DX: G45.9 Transient cerebral ischemic attack, unspecified (principal); I27.20 Pulmonary hypertension, unspecified; I48.91 Unspecified atrial fibrillation; Z95.0 Presence of cardiac pacemaker; I10 Essential (primary) hypertension; R27.0 Ataxia, unspecified; E78.5 Hyperlipidemia, unspecified; Z91.81 History of falling; R11.2 Nausea with vomiting, unspecified; F17.210 Nicotine dependence, cigarettes, uncomplicated; Z79.82 Long term (current) use of aspirin; Z79.899 Other long term (current) drug therapy; I08.2 Rheumatic disorders of both aortic and tricuspid valves
CPT/HCPCS: 36415; 70450; 70496; 70498; 70551; 71045; 80048; 80061; 82962; 84484; 85025; 85610; 85730; 92610; 93005; 93306; 94762; 96372; 96374; 97161; 97165; 99221; 99285; Q9967; A4216; G0378; J2405